=== PATIENT | female | born 1995 | race Caucasian/White ===

== ENCOUNTER 2020-02-08 12:41 | Emergency (ER) | payer OTHER ==
[2020-02-08 12:51] VITALS: BP 109/76; PULSE 94; RESP 18; TEMP 98.4
--- NOTE | 2020-02-08 13:13 | ED ---
Abdominal Pain HPI - General Chief Complaint: Abdominal Pain Stated Complaint: UTI Time Seen by Provider: 02/08/20 12:54 Source: patient Mode of arrival: ambulatory Limitations: no limitations - History of Present Illness Initial Comments: Patient is a 24-year-old female presenting to the emergency Department with complaints of suprapubic pressure for the past 4 days. Patient states she believes she has a UTI. She gets this way with her previous UTIs. She denies being at this time. She denies any fever, chills, nausea, vomiting. She denies any dysuria but does admit to some frequency. Patient has no concerns for STDs. She has no further complaints at this time. Upon arrival to the ER, vital signs are stable. - Related Data Previous Rx's Medication Instructions Recorded Cephalexin [Keflex] 500 mg PO BID 5 Days #10 cap 02/08/20 Allergies Allergy/AdvReac Type Severity Reaction Status Date / Time No Known Allergies Allergy Verified 02/08/20 12:51 Review of Systems ROS Statement: Those systems with pertinent positive or pertinent negative responses have been documented in the HPI. ROS Other: All systems not noted in ROS Statement are negative. Past Medical History Past Medical History: No Reported History History of Any Multi-Drug Resistant Organisms: None Reported Past Surgical History: No Surgical Hx Reported Past Psychological History: Anxiety, Depression Smoking Status: Never smoker Past Alcohol Use History: None Reported Past Drug Use History: None Reported General Exam - General Exam Comments Initial Comments: GENERAL: Patient is well-developed and well-nourished. Patient is nontoxic and in no acute distress. HEAD: Atraumatic, normocephalic. EYES: Pupils equal round and reactive to light, extraocular movements intact, sclera anicteric, conjunctiva are normal. Eyelids were unremarkable. ENT: TMs normal, nares patent, oropharynx clear without exudates. Moist mucous me mbranes. NECK: Normal range of motion, supple without lymphadenopathy or JVD. LUNGS: Unlabored respirations. Breath sounds clear to auscultation bilaterally and equal. No wheezes rales or rhonchi. HEART: Regular rate and rhythm without murmurs, rubs or gallops. ABDOMEN: Mild suprapubic tenderness on palpation. No other specific areas of pain. Soft, normoactive bowel sounds. No guarding, no rebound. No masses appreciated. : Deferred MUSCULOSKELETAL: Normal extremities with adequate strength and normal range of motion, no pitting or edema. No clubbing or cyanosis. NEUROLOGICAL: Patient is alert and oriented x 3. Motor and sensory are also intact. Symmetrical smile. Normal speech, normal gait. PSYCH: Normal mood, normal affect. SKIN: Warm, Dry, normal turgor, no rashes or lesions noted. Limitations: no limitations Course Vital Signs 02/08/20 12:48 Temperature 98.4 F Pulse Rate 94 Respiratory 18 Rate Blood Pressure 109/76 O2 Sat by Pulse 98 Oximetry Medical Decision Making - Medical Decision Making Patient is a 24-year-old female here for suprapubic pressure for the past 4 days. She has same symptom with previous UTIs. She is afebrile, vitals are stable. Urine did show some sediment in the cast, only 4 WBCs. I discussed with patient that her urine does not look like a UTI at this time. Patient was very concerned that she feels like this is the beginning of one her usual UTIs, her symptoms are the same. She denies concerns for STDs. Patient is requesting antibiotic. I will start patient on Keflex. I did recommend following up with her PCP. Patient is in agreement with this plan of care. Return parameters were discussed with the patient she verbalized understanding. - Lab Data Lab Results 02/08/20 02/08/20 Range/Units 12:55 12:55 Urine Color Yellow Urine Appearance Turbid H (Clear) Urine pH 7.5 (5.0-8.0) Ur Specific [place] 1.021 (1.001-1.035) Urine Protein Negative (Negative) Urine Glucose (UA) Negative (Negative) Urine Ketones Negative (Negative) Urine Blood Negative (Negative) Urine Nitrite Negative (Negative) Urine Bilirubin Negative (Negative) Urine Urobilinogen <2.0 (<2.0) mg/dL Ur Leukocyte Esterase Negative (Negative) Urine RBC 1 (0-5) /hpf Urine WBC 4 (0-5) /hpf Ur Squamous Epith Cells 4 (0-4) /hpf Amorphous Sediment Moderate H (None) /hpf Urine Mucus Occasional H (None) /hpf Urine HCG, Qual Not Detected (Not Detectd) Disposition Clinical Impression: Suprapubic discomfort, Increased urinary frequency Disposition: HOME SELF-CARE Condition: Stable Instructions (If sedation given, give patient instructions): Urinary Tract Infection in Women (ED) Additional Instructions: Please return to the Emergency Department if symptoms worsen or any other concerns. Take antibiotic as prescribed. Follow up with PCP. Prescriptions: Cephalexin [Keflex] 500 mg PO BID 5 Days #10 cap Is patient prescribed a controlled substance at d/c from ED?: No Referrals: None,Stated [Primary Care Provider] - 1-2 days
[2020-02-08 13:22] LABS: Amorphous Sediment,Urine Moderate /hpf; Appearance,Urine Turbid (Clear); Bilirubin,Urine Negative (Negative); Blood,Urine Negative (Negative); Color,Urine Yellow; Glucose,Urine (UA) Negative (Negative); Ketones,Urine Negative (Negative); Leukocyte Esterase,Urine Negative (Negative); Mucus,Urine Occasional /hpf; Nitrite,Urine Negative (Negative); PH, Urine 7.5 (5.0-8.0); Protein,Urine Negative (Negative); RBC,Urine 1 /hpf (0-5); Specific Gravity,Urine 1.021 (1.001-1.035); Squamous Epithelial Cell,Urine 4 /hpf (0-4); Urobilinogen,Urine <2.0 mg/dL (<2.0); WBC,Urine 4 /hpf (0-5)
== END 2020-02-08 13:37 | disposition home or self-care (01) ==
LOC: EC 12:41
DX: R35.0 Frequency of micturition (principal); R10.30 Lower abdominal pain, unspecified; Z87.440 Personal history of urinary (tract) infections
CPT/HCPCS: 81001; 81025; 99284

== ENCOUNTER 2020-05-09 21:42 | Emergency (ER) | payer OTHER ==
[2020-05-09 21:46] VITALS: RESP 18
[2020-05-09 22:12] LABS: Appearance,Urine Cloudy (Clear); Bilirubin,Urine Negative (Negative); Blood,Urine Negative (Negative); Color,Urine Yellow; Glucose,Urine (UA) Negative (Negative); Ketones,Urine Negative (Negative); Leukocyte Esterase,Urine Large (Negative); Mucus,Urine Many /hpf; Nitrite,Urine Negative (Negative); PH, Urine 6.5 (5.0-8.0); Protein,Urine 1+ (Negative); RBC,Urine 13 /hpf (0-5); Specific Gravity,Urine 1.025 (1.001-1.035); Squamous Epithelial Cell,Urine 6 /hpf (0-4); WBC,Urine >182 /hpf (0-5)
[2020-05-09] MEDS ORDERED: cefTRIAXone 1,000 MG VIAL (IM USE) IM STA (22:17)
--- NOTE | 2020-05-09 22:22 | ED ---
Female Urogenital HPI - General Chief complaint: Urogenital Stated complaint: UTI Time Seen by Provider: 05/09/20 21:50 Source: patient Mode of arrival: ambulatory - History of Present Illness Initial comments: Patient is a 24-year-old female presenting to emergency Department with complaints of dysuria that started earlier today. Patient states she is having some mild nausea when the burning is severe. She is also complaining of increased frequency and urgency. She denies any lower abdominal pain, no fever or chills. She states she has had UTIs in the past and this feels similar. She did not take any Motrin or any other medicine today for her symptoms. She states she has been drinking a lot of water and trying cranberry juice. Patient denies any vaginal discharge, she has no concerns for STDs. She denies being . Patient has no further complaints at this time. Upon arrival to the ER, her vital signs are stable. - Related Data Previous Rx's Medication Instructions Recorded Cephalexin [Keflex] 500 mg PO BID 5 Days #10 cap 05/09/20 Allergies Allergy/AdvReac Type Severity Reaction Status Date / Time No Known Allergies Allergy Verified 05/09/20 21:46 Review of Systems ROS Statement: Those systems with pertinent positive or pertinent negative responses have been documented in the HPI. ROS Other: All systems not noted in ROS Statement are negative. Past Medical History Past Medical History: No Reported History History of Any Multi-Drug Resistant Organisms: None Reported Past Surgical History: No Surgical Hx Reported Past Psychological History: Anxiety, Depression Smoking Status: Never smoker Past Alcohol Use History: None Reported Past Drug Use History: None Reported General Exam - General Exam Comments Initial Comments: GENERAL: Patient is well-developed and well-nourished. Patient is nontoxic and in no acute distress. HEAD: Atraumatic, normocephalic. EYES: Pupils equal round and reactive to light, extraocular movements intact, sclera anicteric, conjunctiva are normal. Eyelids were unremarkable. ENT: TMs normal, nares patent, oropharynx clear without exudates. Moist mucous membranes. NECK: Normal range of motion, supple without lymphadenopathy or JVD. LUNGS: Unlabored respirations. Breath sounds clear to auscultation bilaterally and equal. No wheezes rales or rhonchi. HEART: Regular rate and rhythm without murmurs, rubs or gallops. ABDOMEN: Soft, nontender, normoactive bowel sounds. No guarding, no rebound. No masses appreciated. : Deferred MUSCULOSKELETAL: Normal extremities with adequate strength and normal range of motion, no pitting or edema. No clubbing or cyanosis. NEUROLOGICAL: Patient is alert and oriented x 3. Motor and sensory are also intact. Cranial nerves II through XII grossly intact. Symmetrical smile. Normal speech, normal gait. PSYCH: Normal mood, normal affect. SKIN: Warm, Dry, normal turgor, no rashes or lesions noted. Course Vital Signs 05/09/20 21:43 Temperature 98.9 F Pulse Rate 86 Respiratory 18 Rate Blood Pressure 128/89 O2 Sat by Pulse 95 Oximetry Medical Decision Making - Medical Decision Making Patient is a 24-year-old female here with UTI symptoms that started today including dysuria, increased in frequency and urgency. Her vitals are stable, afebrile. She has no belly pain. Her urine does show a large amount of WBCs, leukocyte esterase, urine hCG is not detected. Urine culture is pending. I will give her 1 g Rocephin in the ER and started her on Keflex. She may also take ibuprofen and Azo for symptom relief. Patient is stable for discharge. Return parameters were discussed with the patient and she verbalized understanding. - Lab Data Lab Results 05/09/20 05/09/20 Range/Units 22:02 22:02 Urine Color Yellow Urine Appearance Cloudy H (Clear) Urine pH 6.5 (5.0-8.0) Ur Specific [place] 1.025 (1.001-1.035) Urine Protein 1+ H (Negative) Urine Glucose (UA) Negative (Negative) Urine Ketones Negative (Negative) Urine Blood Negative (Negative) Urine Nitrite Negative (Negative) Urine Bilirubin Negative (Negative) Urine Urobilinogen 2.0 (<2.0) mg/dL Ur Leukocyte Esterase Large H (Negative) Urine RBC 13 H (0-5) /hpf Urine WBC >182 H (0-5) /hpf Ur Squamous Epith Cells 6 H (0-4) /hpf Urine Mucus Many H (None) /hpf Urine HCG, Qual Not Detected (Not Detectd) Disposition Clinical Impression: Urinary tract infection Disposition: HOME SELF-CARE Condition: Stable Instructions (If sedation given, give patient instructions): Urinary Tract Infection in Women (ED) Additional Instructions: Please return to the Emergency Department if symptoms worsen or any other concerns. Take antibiotic as prescribed, finish entire course. May take ibuprofen or Azo for discomfort. Increase water intake. Follow up with your PCP. Prescriptions: Cephalexin [Keflex] 500 mg PO BID 5 Days #10 cap Is patient prescribed a controlled substance at d/c from ED?: No Referrals: None,Stated [Primary Care Provider] - 1-2 days
[2020-05-09 22:38] VITALS: BP 108/69; PULSE 90; TEMP 98.7
== END 2020-05-09 22:44 | disposition home or self-care (01) ==
LOC: EC 21:42
DX: N39.0 Urinary tract infection, site not specified (principal)
CPT/HCPCS: 81001; 81025; 87086; 99283; 96372; J0696

== ENCOUNTER 2020-06-24 17:03 | Emergency (ER) | payer OTHER ==
[2020-06-24 17:13] VITALS: RESP 18
--- NOTE | 2020-06-24 18:07 | ED ---
General Adult HPI - General Chief complaint: Back Pain/Injury Stated complaint: left side/back pain Time Seen by Provider: 06/24/20 17:16 Source: patient Mode of arrival: ambulatory Limitations: no limitations - History of Present Illness Initial comments: Patient is a 24-year-old female presenting to emergency Department with complaints of lower abdominal pressure as well as intermittent low back pain. Patient states she's been feeling like she's been having bloating and possible UTI symptoms for the past 1-2 weeks, she started her period today and thought her symptoms were increasing. Patient woke up suddenly around 5 AM this morning with left-sided low back pain but states she's also been having some right-sided low back pain as well. She states she did have sweats and chills but no documented fever. She did admit to some mild nausea and one episode of vomiting. She denies concerns for STDs. She does admit to dysuria and frequency. Noticed any hematuria but states today she started her period so she is unsure. She denies history of kidney stones. She denies any abdominal surgeries. She states right now her pain is very minimal and it feels like her normal period cramps. She denies any nausea at this time. She has no further complaints. She denies being . - Related Data Home Medications Medication Instructions Recorded Confirmed Albuterol Sulfate [Proair Hfa] 1 - 2 puff INHALATION Q6HR PRN 06/24/20 06/24/20 Beclomethasone Dipropionate [Qvar 1 puff INHALATION RT-BID 06/24/20 06/24/20 40 mcg Redihaler] Sertraline [Zoloft] 50 mg PO DAILY 06/24/20 06/24/20 Previous Rx's Medication Instructions Recorded Cephalexin [Keflex] 500 mg PO BID 7 Days #14 cap 06/24/20 Allergies Allergy/AdvReac Type Severity Reaction Status Date / Time Penicillins Allergy Unknown Verified 06/24/20 18:20 Childhood Review of Systems ROS Statement: Those systems with pertinent positive or pertinent negative responses have been documented in the HPI. ROS Other: All systems not noted in ROS Statement are negative. Past Medical History Past Medical History: Asthma History of Any Multi-Drug Resistant Organisms: None Reported Past Surgical History: No Surgical Hx Reported Past Psychological History: Anxiety, Depression Smoking Status: Never smoker Past Alcohol Use History: None Reported Past Drug Use History: None Reported General Exam - General Exam Comments Initial Comments: GENERAL: Patient is well-developed and well-nourished. Patient is nontoxic and in no acute distress. HEAD: Atraumatic, normocephalic. EYES: Pupils equal round and reactive to light, extraocular movements intact, sclera anicteric, conjunctiva are normal. Eyelids were unremarkable. ENT: TMs normal, nares patent, oropharynx clear without exudates. Moist mucous membranes. NECK: Normal range of motion, supple without lymphadenopathy or JVD. LUNGS: Unlabored respirations. Breath sounds clear to auscultation bilaterally and equal. No wheezes rales or rhonchi. HEART: Regular rate and rhythm without murmurs, rubs or gallops. ABDOMEN: Soft, nontender, normoactive bowel sounds. No guarding, no rebound. No masses appreciated. No flank pain. : Deferred MUSCULOSKELETAL: Normal extremities with adequate strength and normal range of motion, no pitting or edema. No clubbing or cyanosis. NEUROLOGICAL: Patient is alert and oriented x 3. Motor and sensory are also intact. Cranial nerves II through XII grossly intact. Symmetrical smile. Normal speech, normal gait. PSYCH: Normal mood, normal affect. SKIN: Warm, Dry, normal turgor, no rashes or lesions noted. Limitations: no limitations Course Vital Signs 06/24/20 17:06 Temperature 99.1 F Pulse Rate 62 Respiratory 18 Rate Blood Pressure 125/66 O2 Sat by Pulse 97 Oximetry Medical Decision Making - Medical Decision Making Patient is 24-year-old female here for UTI-type symptoms for the last week. She denies being . Is complaining of some mild flank pain however no flank pain on exam. Her vital signs are stable. Urine shows significant amount of blood however she just started her menstrual cycle. Given this patient's complaints, I will cover her for UTI, urine culture is pending. Patient will be given 1 g Rocephin in the ER today, continued on Keflex. She can take Zofran as needed for additional nausea. She is in agreement with this plan of care. She is stable for discharge. Return parameters were discussed with the patient verbalized understanding. - Lab Data Lab Results 06/24/20 06/24/20 Range/Units 17:55 17:55 Urine Color Red Urine Appearance Bloody H (Clear) Urine RBC >182 H (0-5) /hpf Urine WBC >182 H (0-5) /hpf Urine HCG, Qual Not Detected (Not Detectd) Disposition Clinical Impression: UTI (urinary tract infection), Nausea Disposition: HOME SELF-CARE Condition: Stable Instructions (If sedation given, give patient instructions): Urinary Tract Infection in Women (ED) Additional Instructions: Please return to the Emergency Department if symptoms worsen or any other concerns. Take antibiotic as prescribed, finish entire course. May use Zofran for additional nausea or vomiting. Follow-up with your regular doctor. Prescriptions: Cephalexin [Keflex] 500 mg PO BID 7 Days #14 cap Is patient prescribed a controlled substance at d/c from ED?: No Referrals: None,Stated [Primary Care Provider] - 1-2 days
[2020-06-24 18:18] LABS: RBC,Urine >182 /hpf (0-5); WBC,Urine >182 /hpf (0-5)
[2020-06-24 18:19] LABS: Appearance,Urine Bloody (Clear); Color,Urine Red
[2020-06-24] MEDS ORDERED: ONDANSETRON 4 MG ODT STARTER PACK 2 TAB BTL PO STA (18:28)
[2020-06-24] MEDS ORDERED: cefTRIAXone 1,000 MG VIAL (IM USE) IM STA (18:28)
[2020-06-24 19:04] VITALS: BP 112/62; PULSE 66; TEMP 98.9
== END 2020-06-24 19:00 | disposition home or self-care (01) ==
LOC: EC 17:03
DX: N39.0 Urinary tract infection, site not specified (principal); R11.0 Nausea; J45.909 Unspecified asthma, uncomplicated; F41.9 Anxiety disorder, unspecified; F32.9 Major depressive disorder, single episode, unspecified; Z79.51 Long term (current) use of inhaled steroids; Z79.899 Other long term (current) drug therapy; Z88.0 Allergy status to penicillin
CPT/HCPCS: 81001; 81025; 87086; 99283; 96372; J0696; S0119